=== PATIENT | male | born 1980 | race Two or more races ===

== ENCOUNTER 2017-12-12 10:00 | Emergency (ER) | payer MEDICAID, OTHER ==
[~2017-12-12] VITALS: Ht 177.8 cm; Wt 147.9 kg
[2017-12-12 15:27] VITALS: BP 171/108
[2017-12-12 15:30] LABS: Basophils # (auto) 0.1 uL; Basophils % (auto) 1.5 % (0.0-2.0); Eosinophils # (auto) 0.2 uL; Eosinophils % (auto) 2.1 % (0.0-7.0); Hematocrit 44.1 % (41.0-53.0); Hemoglobin 15.4 g/dL (13.5-17.5); Lymphocytes # (auto) 1.4 uL; Lymphocytes % (auto) 15.5 % (10.0-50.0); Mean Corpuscular Hgb Conc. 34.9 g/dL (32.0-36.0); Mean Corpuscular Volume 88.6 fL (80.0-100.0); Monocytes # (auto) 0.5 uL; Monocytes % (auto) 5.3 % (0.0-12.0); Neutrophils # (auto) 6.9 uL; Neutrophils % (auto) 75.6 % (37.0-80.0); Nucleated Red Blood Cells % 0.3 %; Platelet Count (auto) 192 10^3/uL (140-450); Red Blood Cells 4.97 10^6/uL (4.5-5.90); Red Cell Distribution Width 14.4 % (11.8-14.3); White Blood Cell 9.2 10^3/uL (4.4-10.8)
[2017-12-12 15:43] LABS: BUN/Creatinine Ratio 16.5; Bilirubin, Total 0.7 mg/dL (0.2-1.0); Calcium 8.8 mg/dL (8.5-10.1); Total Protein 8.6 g/dL (6.4-8.2)
== END 2017-12-12 17:12 | disposition home or self-care (01) ==
LOC: ER 10:00
DX: G47.30 Sleep apnea, unspecified (principal); I10 Essential (primary) hypertension
CPT/HCPCS: 36415; 80053; 85025